=== PATIENT | female | born 1960 | race Caucasian/White ===

== ENCOUNTER 2016-12-01 01:45 | Emergency (ER) | payer MEDICARE, BC ==
[~2016-12-01] VITALS: Ht 165.1 cm; Wt 92.5 kg
[~2016-12-01 01:45] MED LIST: ATORVASTATIN CA40 MG PO; BACTRIM DS 8001 TA1 PO; DULOXETINE60 MG PO; LISINOPRIL/HCTZ1 TA3 FT; NOMEDS *; PYRIDIUM200 M2 PO
[2016-12-01] MEDS ORDERED: BENZONATATE200 MG PO (01:57)
--- NOTE | 2016-12-01 03:24 | Emergency Room Report ---
History of Present Illness Time Seen by MD Bosch Presenting Problem in Triage Pt arrived:Walked Presenting Problem:PT COMPLAINING OF COUGH. PT STATES SHE IS UNABLE TO LAY DOWN AND SLEEP. PT STATES SHE HAS BEEN TREATED FOR BRONCHITIS WITH AZITHROMYCIN AND TESSALON. SHE FINISHED COURSE OF ANTIBIOTICS ON 11/28/16. 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 N Clinical Suspician of Infection? N Mental Status: 1 - Regular (Normal Baseline) Sepsis Risk: Have you (or family members/close friends) recently traveled outside the [place]? N If Yes, where/when: Have you had exposure to infectious disease within the past month? N TB? Other? 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 No Angina: No SD: No Hypertension? Yes Hyperlipidemia? Yes CHF? No DVT? No PE? No COPD? No Asthma? No Anemia? No GERD? No Gastric ulcers? No GI Bleed? No Hernia? No Thyroid Problems? No Hypothyroidism? No CVA? No Seizures? No Diabetes? No Renal Insuffiency? No End Stage Renal Disease? No UTI? Yes Stones? No BPH? No GB Disease: No Nephritic Syndrome? No Asplenia? No Hepatitis? No Sickle Cell Disease? No Arthritis? No Migraines? No Cataracts? No Glaucoma? No MRSA? No HIV? No TB? No Anxiety? No Depression? Yes Cancer? No More? No Immunization Hx DT/Tetanus > 10 YRS Flu THIS YR Pneumonia NEVER Surgical Hx Previous Surgery?Y RT SHOULDER Tubal Ligation DX. LAP. 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 Respiratory cough, shortness of breath, denies wheezing Cardiovascular denies chest pain, denies palpitations, denies syncope Gastrointestinal denies abdominal pain, denies diarrhea, denies vomiting Genitourinary denies: dysuria, frequency, hesitancy, hematuria. Musculoskeletal denies back pain, denies joint pain, denies neck pain Skin denies rash Psychiatric/Neurological denies headache, denies seizure Physical Exam Vital Signs Vital Signs Date Time Temp Pulse Resp B/P Pulse O2 O2 Flow FiO2 Ox Delivery Rate 12/01 0442 72 18 173/94 94 12/01 0150 98.8 69 18 174/87 94 - WBC >12,000 or <4,000 or 10% bands? 2 or more SIRS Criteria Met? B/P:173/94 MAP:116 Creatinine >2.0? UA output<0.5ml/kg/hr for 2 hrs? Platelet count >100,000? Lactate >2.0mmol/1? INR >1.2 or PTT > than 60 sec? Evidence of Organ Dysfunction? Provider documented clinical suspician of infection? N Sepsis Criteria Count: 0 Sepsis Risk: General Appearance no apparent distress Eye Exam - bilateral eye PERRL, bilateral eye EOMI Ear, Nose, Throat normal ENT inspection Neck supple Respiratory Status No: respiratory distress. Lung Sounds bilateral: decreased breath sounds. 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 No Results/Orders Laboratory Tests 12/01/16336: Troponin I 0.03 12/01/16336: Sodium 141, Potassium 3.4 L, Chloride 104, Carbon Dioxide 30, BUN 8, Creatinine 1.0, Estimated Creat Clear 91, Estimated GFR (MDRD) 57 L, Glucose 104, Calcium 8.9, WBC 10.1, RBC 4.18 L, Hgb 13.2, Hct 38.4, MCV 91.8, RDW 15.6, Plt Count 204, Gran % 59.4, Gran # 6.0, Lymphocytes % 35.8, Monocytes % 4.8, Lymphocytes # 3.6, Monocytes # 0.5, PUBS MCHC 34.4, MCH 31.6 H 12/01/16 0150: Influenza Type A Ag NOT DETECTED, Influenza Type B Ag NOT DETECTED Current Medication Orders Sig/Mariangel Start time Last Medication Dose Route Stop Time Status Admin Furosemide 0 .STK-MED ONE 12/01 332 DC .ROUTE Furosemide 40 MG ONCE ONE 12/01 0330 DC 12/01 IV 12/01 033 0338 Sodium Chloride 10 ML PRN PRN 12/01 033 AC IV 12/02 0325 Orders Procedure Date/time Status IV SALINE LOCK 12/01 032 Active TROPONIN I 12/01 032 Complete CBC WITH AUTO DIFF 12/01 032 Complete BASIC METABOLIC PROFILE 12/01 0325 Complete CHEST(2 VIEWS-NOT PORTABLE) 12/01 0157 Active INFLUENZA A&B ANTIGENS 12/01 0149 Complete XRAY/CT/US XRAY/CT/US XRAY chest XR interpretation by reviewed by me Xray Results abnormal (cm) Departure Departure Time of Disposition 0553 Disposition DC Home or Self Care(routine) Clinical Impression Primary Impression: Acute dyspnea Secondary Impressions: Cough Condition STABLE Patient Instructions DI for Cough -- Adult Additional Instructions see pcp and hold lisinopril and stop smoking Discharge Counseling Counseled pt/family regarding diagnosis, test results, medications/RX, follow up needs ED Critical Care Critical Care No at 0550
--- NOTE | 2016-12-01 03:24 | Emergency Room Report ---
History of Present Illness Time Seen by MD Bosch Presenting Problem in Triage Pt arrived:Walked Presenting Problem:PT COMPLAINING OF COUGH. PT STATES SHE IS UNABLE TO LAY DOWN AND SLEEP. PT STATES SHE HAS BEEN TREATED FOR BRONCHITIS WITH AZITHROMYCIN AND TESSALON. SHE FINISHED COURSE OF ANTIBIOTICS ON 11/28/16. 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 N Clinical Suspician of Infection? N Mental Status: 1 - Regular (Normal Baseline) Sepsis Risk: Have you (or family members/close friends) recently traveled outside the [place]? N If Yes, where/when: Have you had exposure to infectious disease within the past month? N TB? Other? 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 No Angina: No MD: No Hypertension? Yes Hyperlipidemia? Yes CHF? No DVT? No PE? No COPD? No Asthma? No Anemia? No GERD? No Gastric ulcers? No GI Bleed? No Hernia? No Thyroid Problems? No Hypothyroidism? No CVA? No Seizures? No Diabetes? No Renal Insuffiency? No End Stage Renal Disease? No UTI? Yes Stones? No BPH? No GB Disease: No Nephritic Syndrome? No Asplenia? No Hepatitis? No Sickle Cell Disease? No Arthritis? No Migraines? No Cataracts? No Glaucoma? No MRSA? No HIV? No TB? No Anxiety? No Depression? Yes Cancer? No More? No Immunization Hx DT/Tetanus > 10 YRS Flu THIS YR Pneumonia NEVER Surgical Hx Previous Surgery?Y RT SHOULDER Tubal Ligation DX. LAP. 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 Respiratory cough, shortness of breath, denies wheezing Cardiovascular denies chest pain, denies palpitations, denies syncope Gastrointestinal denies abdominal pain, denies diarrhea, denies vomiting Genitourinary denies: dysuria, frequency, hesitancy, hematuria. Musculoskeletal denies back pain, denies joint pain, denies neck pain Skin denies rash Psychiatric/Neurological denies headache, denies seizure Physical Exam Vital Signs Vital Signs Date Time Temp Pulse Resp B/P Pulse O2 O2 Flow FiO2 Ox Delivery Rate 12/01 0442 72 18 173/94 94 12/01 0150 98.8 69 18 174/87 94 - WBC >12,000 or <4,000 or 10% bands? 2 or more SIRS Criteria Met? B/P:173/94 MAP:116 Creatinine >2.0? UA output<0.5ml/kg/hr for 2 hrs? Platelet count >100,000? Lactate >2.0mmol/1? INR >1.2 or PTT > than 60 sec? Evidence of Organ Dysfunction? Provider documented clinical suspician of infection? N Sepsis Criteria Count: 0 Sepsis Risk: General Appearance no apparent distress Eye Exam - bilateral eye PERRL, bilateral eye EOMI Ear, Nose, Throat normal ENT inspection Neck supple Respiratory Status No: respiratory distress. Lung Sounds bilateral: decreased breath sounds. 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 No Results/Orders Laboratory Tests 12/01/16336: Troponin I 0.03 12/01/16336: Sodium 141, Potassium 3.4 L, Chloride 104, Carbon Dioxide 30, BUN 8, Creatinine 1.0, Estimated Creat Clear 91, Estimated GFR (MDRD) 57 L, Glucose 104, Calcium 8.9, WBC 10.1, RBC 4.18 L, Hgb 13.2, Hct 38.4, MCV 91.8, RDW 15.6, Plt Count 204, Gran % 59.4, Gran # 6.0, Lymphocytes % 35.8, Monocytes % 4.8, Lymphocytes # 3.6, Monocytes # 0.5, PUBS MCHC 34.4, MCH 31.6 H 12/01/16 0150: Influenza Type A Ag NOT DETECTED, Influenza Type B Ag NOT DETECTED Current Medication Orders Sig/Mariangel Start time Last Medication Dose Route Stop Time Status Admin Furosemide 0 .STK-MED ONE 12/01 332 DC .ROUTE Furosemide 40 MG ONCE ONE 12/01 0330 DC 12/01 IV 12/01 033 0338 Sodium Chloride 10 ML PRN PRN 12/01 033 AC IV 12/02 0325 Orders Procedure Date/time Status IV SALINE LOCK 12/01 032 Active TROPONIN I 12/01 032 Complete CBC WITH AUTO DIFF 12/01 032 Complete BASIC METABOLIC PROFILE 12/01 0325 Complete CHEST(2 VIEWS-NOT PORTABLE) 12/01 0157 Active INFLUENZA A&B ANTIGENS 12/01 0149 Complete XRAY/CT/US XRAY/CT/US XRAY chest XR interpretation by reviewed by me Xray Results abnormal (cm) Departure Departure Time of Disposition 0553 Disposition DC Home or Self Care(routine) Clinical Impression Primary Impression: Acute dyspnea Secondary Impressions: Cough Condition STABLE Patient Instructions DI for Cough -- Adult Additional Instructions see pcp and hold lisinopril and stop smoking Discharge Counseling Counseled pt/family regarding diagnosis, test results, medications/RX, follow up needs ED Critical Care Critical Care No at 0546
[2016-12-01 04:27] LABS: HEMOGLOBIN 13.2 g/dL (12.2-16.2); LYMPH % 35.8 % (10-50.0)
[2016-12-01 04:28] LABS: LYMPH # 3.6 K/mm3 (0.7-4.5)
[2016-12-01 06:06] VITALS: BP 165/76
--- NOTE | 2016-12-01 07:25 | RADIOLOGY REPORT PS360 ---
CHEST(2 VIEWS-NOT PORTABLE) HISTORY: COUGH COMPARISON: 09/29/2011 FINDINGS: The cardiomediastinal silhouette and pulmonary vascularity are within normal limits. Pericardial fat pad noted on the right. Increased markings noted projecting over the heart on the lateral view with atelectasis within the right middle lobe or lingula. The remaining lungs are clear. No acute bony anomalies. IMPRESSION: Atelectatic/fibrotic changes within the right middle lobe or lingula otherwise negative
== END 2016-12-01 06:07 | disposition home or self-care (01) ==
LOC: ER 01:45
PROVIDERS: Emergency Medicine
DX: R06.09 Other forms of dyspnea (principal); R05 Cough; I10 Essential (primary) hypertension; Z72.0 Tobacco use

== ENCOUNTER → 2016-12-13 | Outpatient (CLI) | payer MEDICARE, BC ==
[~2016-12-13] MED LIST changes: +BENZONATATE200 MG PO
--- NOTE | 2016-12-16 00:27 | RADIOLOGY REPORT PS360 ---
DIG MAMM-SCREEN SELENE W/CAD CAD Screening COMPARISON: Digital mammograms 06/22/2011 and 10/23/2015 INDICATION: There is a history of breast cancer patient's mother TECHNIQUE: Standard CC and MLO images were obtained. R2 CAD reviewed. FINDINGS: Prominent heterogenic fibroglandular densities are seen in the central portions and upper outer quadrants of both breast. The findings are fairly symmetrical in each breast. There are scattered benign-appearing calcination is in each breast as noted previously. There is no suspicious lesion in either breast and there are no suspicious microcalcifications. There are small nodes in both axilla as noted previously. IMPRESSION: Moderate heterogenic breast density with no suspicious lesion seen recommend yearly follow-up BI-RADS CATEGORY: 2_Benign RECOMMENDED FOLLOWUP: 12M 12 MONTH FOLLOW-UP (A letter has been sent to the patient regarding results of the study.)
== END ==
LOC: RAD 11-26 10:30
DX: Z12.31 Encounter for screening mammogram for malignant neoplasm of breast (principal)
CPT/HCPCS: G0202

== ENCOUNTER 2017-10-08 12:27 | Emergency (ER) | payer MEDICARE, BC ==
[~2017-10-08] VITALS: Ht 165.1 cm; Wt 90.7 kg
[~2017-10-08 12:27] MED LIST changes: +MEDROL 4MG. DOSE4 MG PO
--- OUTSIDE RECORDS SUMMARY | 2017-10-08 12:31 | External Medical Summary Rpt | CCD ---
Author Author , MERVAT LEWIS Address Unknown Phone [email or web address] Purpose Continuity of Care Document - 06-03-2017 through 2016 Problems Code Diagnosis DOS Provider Status N39.0 URINARY TRACT INFECTION, SITE NOT SPECIFIED R05 COUGH R06.00 DYSPNEA, UNSPECIFIED R10.9 UNSPECIFIED ABDOMINAL PAIN R20.0 ANESTHESIA OF SKIN R29.818 OTHER SYMPTOMS AND SIGNS INVOLVING THE NERVOUS SYSTEM
--- OUTSIDE RECORDS SUMMARY | 2017-10-08 12:31 | External Medical Summary Rpt | CCD ---
Demographics Preferred Language [place] Marital Status Unknown Alevism Affiliation Unknown Race Unknown Ethnic Group Unknown Author Author , DEBBIE Organization DEBBIE Address Unknown Phone [email or web address] Immunization Name Date Rout CVX Reac Dose Comm Prov Is Faci e tion ent ider Refu lity Give sed n Td 03-0 9 999 Hist H149 No H149 (nasra 7-19 [facility] lt), 97 al Info adso rmat rbed ion - Sour ce Unsp ecif ied
--- OUTSIDE RECORDS SUMMARY | 2017-10-08 12:31 | External Medical Summary Rpt | CCD ---
Demographics Preferred Language Armenian Marital Status Unknown Quaker Affiliation Unknown Race Unknown Ethnic Group Unknown Author Author , DEBBIE Organization DEBBIE Address Unknown Phone [email or web address] Immunization Name Date Rout CVX Reac Dose Comm Prov Is Faci e tion ent ider Refu lity Give sed n Td 03-0 9 999 Hist H149 No H149 (nasra 7-19 [facility] lt), 97 al Info adso rmat rbed ion - Sour ce Unsp ecif ied
--- OUTSIDE RECORDS SUMMARY | 2017-10-08 12:31 | External Medical Summary Rpt | CCD ---
Author Author , MERVAT LEWIS Address Unknown Phone [email or web address] Purpose Continuity of Care Document - 06-03-2017 through 2016 Problems Code Diagnosis DOS Provider Status N39.0 URINARY TRACT INFECTION, SITE NOT SPECIFIED R05 COUGH R06.00 DYSPNEA, UNSPECIFIED R10.9 UNSPECIFIED ABDOMINAL PAIN R20.0 ANESTHESIA OF SKIN R29.818 OTHER SYMPTOMS AND SIGNS INVOLVING THE NERVOUS SYSTEM
--- OUTSIDE RECORDS SUMMARY | 2017-10-08 12:32 | External Medical Summary Rpt ---
Author Author DE[employer]E Production, [employer] Organization [employer] Address Unknown Phone Unavailable Results Glucose [Mass/volume] in Capillary blood by Glucometer Observa Value Referen Units Interpr Notes Date tion ce etation Range Glucose 70 - 110 mg/dl Normal No Jun 03 [Mass/vol informati 2017 ume] in on in 12:19 PM Capillary source blood by data Glucomete r
--- NOTE | 2017-10-08 12:50 | Urgent Treatment Center Report ---
History of Present Issue Date/Time Seen by Provider 10/08/17 2499 Visit Reason Pt arrived:Walked Presenting Problem:PT IS C/O L SHOULDER PAIN. PT STATES SHE HAS HAD A STIFF NECK X3 WEEKS. PT STATED SHE BENT OVER TO PICK SOMETHING UP A COUPLE DAYS AGO AND PULLED HER LEFT SHOULDER. Location if Accident: Onset of symptoms date/time:/ or onset unknown for:MEDICAL HX UNKNOWN Have you (or family members/close friends) recently traveled outside the [place]? N If Yes, where/when: Have you had exposure to infectious disease within the past month? TB? Other? Specify: Here w/ son c/o pain throughout left side of posterior neck and posterior shoulder since day before yesterday but worse today. Reporting a stiff neck ( primarily on left) when waking up approx 3 weeks ago. "[place] just like a kink in the neck from sleeping wrong". Without treatment, "worked its way out on its own over a couple days". However on , almost dropped her crockpot. Reached out and grabbed it with both hands out in front of her. Immediate pain right posterior shoulder. Since then, area more painful, stiffer and radiating into neck. Pain worse with some neck ROM and most left shoulder range of motion. Improved with heating pad and rest. Initially imiproved with NSAIDs but not "lately". Last dose last night. Denies N/T. Thinks LUE weaker but not if weak or just hurts. Denies headache, fever, vision change. PMHx of rotater cuff injury in right shoulder. Reports this doesn't feel simliar as this feels more "muscular" and "stiff". Source patient Exam Limitations no limitations ALLERGIES Coded Allergies: buspirone (From [employer]) (12/01/16) Home Medications Reported Medications Lisinopril & Hctz (Lisinopril-Hctz 10-12.5 MG Tab) 1 TAB FT DAILY #90 Atorvastatin Calcium 40 MG PO #90 History Medical History General CAD? No Angina: No OK: No Hypertension? Yes Hyperlipidemia? Yes CHF? No DVT? No PE? No COPD? No Asthma? No Anemia? No GERD? No Gastric ulcers? No GI Bleed? No Hernia? No Thyroid Problems? No Hypothyroidism? No CVA? No Seizures? No Diabetes? No Renal Insuffiency? No UTI? Yes Stones? No BPH? No GB Disease: No Nephritic Syndrome? No Asplenia? No Hepatitis? No Sickle Cell Disease? No Arthritis? No Migraines? No Cataracts? No Glaucoma? No MRSA? No HIV? No TB? No Anxiety? No Depression? Yes Cancer? No More? No Immunization HX DT/Tetanus > 10 YRS Flu THIS YR Pneumonia NEVER Surgical Hx Previous Surgery?Y RT SHOULDER Tubal Ligation DX. LAP. 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 TUNNEL Family History Family HX Diabetes Yes CAD Yes Hypertension Yes Hyperlipidemia Yes Cancer Yes TB No Social History Smoking Hx Smoker: Never Smoker Tobacco: No Packs/day < 1 Pack Alcohol Alcohol: No Review of Systems All Other Systems Reviewed and Negative (as appropriate for CC) Constitutional denies fever, denies malaise Musculoskeletal see HPI Skin denies change in color, denies lesions, denies lumps Psychiatric/Neurological see HPI Physical Exam Vital Signs Vital Signs Date Time Temp Pulse Resp B/P Pulse O2 O2 Flow FiO2 Ox Delivery Rate 10/08 1422 97.0 62 20 174/82 98 10/08 1331 20 10/08 1235 97.0 62 20 174/82 98 General Appearance moderate distress, guarding left UE and neck, head tilted to right Neck normal inspection, supple, full range of motion (w/ pain rotation to left), mild tenderness left posterior neck, no cervical spine tenderness Respiratory Status Yes: chest symmetrical, non tender chest. No: respiratory distress, use of accessory muscles, productive cough, non productive cough. Lung Sounds anterior: lungs clear. posterior: lungs clear. bilateral: lungs clear. 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 No Results/Orders Orders Procedure Date/time Status STABILIZE JOINT 10/08 1413 Active XRAY/CT/US XRAY/CT/US XRAY shoulder (left) XR interpretation by reviewed by me (ER MD not available) Xray Results no acute finding Progress [facility] Progress Notes Date 10/08/17 Time 1405 Comment Pain much improved since toradol and norflex. Using LUE more and neck/head in normal alignment now. Son is at bedside for discharge. Departure Departure Time of Disposition 1411 Disposition DC Home or Self Care(routine) Clinical Impression Primary Impression: Strain of left trapezius muscle Qualifiers: Encounter type: initial encounter Qualified Code: S46.812A - Strain of other muscles, fascia and tendons at shoulder and upper arm level, left arm, initial encounter Condition STABLE Referrals Gary CRUZ,Jorge Alberto Fajardo (Family) IMMEDIATELY for new or worsening symptoms OR no noticeable improvement over the next 3-5 days Patient Instructions DI for Muscle Spasm, DI for Muscle Strain Additional Instructions * use as tolerated but if painful, allow it to rest by using sling being sure to use ROM intermittently throughout day so shoulder doesn't get too stiff. Avoid heavy lifting/use of left arm while improving but movement important. * Rest * ice 15-20 mins 3-4 times a day for 48 hours followed by moist heat 15 minutes 3-4 times a day * sling for support. Be sure not too tight but not too loose either * naproxen every 12 hours as needed for pain and inflammation. If you need something more, you can take tylenol every 4 hours as needed as long as your primary care provider has told you it is ok to take both. * No additional anti-inflammatories like motrin, aleve, advil with the above amount of naproxen. You CAN still take Tylenol every 4 hours as needed if you need something more for pain. * Muscle relaxer every 8 hours as needed for muscle spasms but remember, it WILL cause drowsiness. You can NOT take it and drive, operate machinary or care for small children You had both toradol and norflex injections in clinic. these are similiar to the two prescriptions I sent. Be sure to wait 6-8 hours before taking your first dose. Discharge Counseling Counseled pt/family regarding diagnosis, test results, medications/RX, home care, follow up needs Prescriptions Current Visit Scripts NAPROXEN (NAPROSYN 500MG TAB) 500 MG PO BID PRN pain #14 TAB take with food Cyclobenzaprine Hcl (Flexeril) 5-10 MG PO Q8HP PRN muscle spasms #9 TAB will cause drowsiness Comments patient aware that once xray read by radiologist, I will be in touch with any different finding. 1503: Rvwd final xray result. No acute findings. at 2152
[2017-10-08] MEDS ORDERED: FLEXERIL10 MG PO (14:20)
[2017-10-08] MEDS ORDERED: NAPROSYN 500MG500 MG PO (14:20)
[2017-10-08 14:22] VITALS: BP 174/82
--- NOTE | 2017-10-08 14:35 | RADIOLOGY REPORT PS360 ---
CLINICAL INDICATION: Left shoulder pain after injury ORDERING PHYSICIAN: USAMA BYRD APRN PATIENT AGE: 57 years COMPARISON: Left shoulder 04/27/2007 FINDINGS: Three views of the left shoulder The distal clavicleleft, scapula, and proximal humerus are intact. Glenohumeral and acromioclavicular alignment appear normal. There is no acute fracture or dislocation of the left shoulder. No destructive bony lesions are identified. IMPRESSION: No acute fracture or dislocation of the left shoulder.
== END 2017-10-08 14:22 | disposition home or self-care (01) ==
LOC: UTC 12:27
DX: S46.812A Strain of other muscles, fascia and tendons at shoulder and upper arm level, left arm, initial encounter (principal); I10 Essential (primary) hypertension; E78.5 Hyperlipidemia, unspecified

== ENCOUNTER 2017-10-18 18:42 | Emergency (ER) | payer MEDICARE, BC ==
[~2017-10-18] VITALS: Ht 165.1 cm; Wt 88.9 kg
[~2017-10-18 18:42] MED LIST changes: +FLEXERIL10 MG PO; +NAPROSYN 500MG500 MG PO
--- OUTSIDE RECORDS SUMMARY | 2017-10-18 18:51 | External Medical Summary Rpt | CCD ---
Author Author , DEBBIE LEWIS Address Unknown Phone [email or web address] Purpose Continuity of Care Document - through 2016 Problems Code Diagnosis DOS Provider Status N39.0 URINARY TRACT INFECTION, SITE NOT SPECIFIED R05 COUGH R06.00 DYSPNEA, UNSPECIFIED R10.9 UNSPECIFIED ABDOMINAL PAIN R20.0 ANESTHESIA OF SKIN R29.818 OTHER SYMPTOMS AND SIGNS INVOLVING THE NERVOUS SYSTEM
--- OUTSIDE RECORDS SUMMARY | 2017-10-18 18:51 | External Medical Summary Rpt | CCD ---
Demographics Preferred Language Swedish Marital Status Unknown Mormon Affiliation Unknown Race Unknown Ethnic Group Unknown Author Author , DEBBIE Organization DEBBIE Address Unknown Phone [email or web address] Immunization Name Date Rout CVX Reac Dose Comm Prov Is Faci e tion ent ider Refu lity Give sed n Td 03-0 9 999 Hist H149 No H149 (nasra 7-19 [facility] lt), 97 al Info adso rmat rbed ion - Sour ce Unsp ecif ied
--- OUTSIDE RECORDS SUMMARY | 2017-10-18 18:51 | External Medical Summary Rpt | CCD ---
Demographics Preferred Language Afghan Marital Status Unknown Islam Affiliation Unknown Race Unknown Ethnic Group Unknown Author Author , DEBBIE Organization DEBBIE Address Unknown Phone [email or web address] Immunization Name Date Rout CVX Reac Dose Comm Prov Is Faci e tion ent ider Refu lity Give sed n Td 03-0 9 999 Hist H149 No H149 (nasra 7-19 [facility] lt), 97 al Info adso rmat rbed ion - Sour ce Unsp ecif ied
--- OUTSIDE RECORDS SUMMARY | 2017-10-18 18:51 | External Medical Summary Rpt | CCD ---
Author Author , DEBBIE LEWIS Address Unknown Phone [email or web address] Purpose Continuity of Care Document - through 2016 Problems Code Diagnosis DOS Provider Status N39.0 URINARY TRACT INFECTION, SITE NOT SPECIFIED R05 COUGH R06.00 DYSPNEA, UNSPECIFIED R10.9 UNSPECIFIED ABDOMINAL PAIN R20.0 ANESTHESIA OF SKIN R29.818 OTHER SYMPTOMS AND SIGNS INVOLVING THE NERVOUS SYSTEM
[2017-10-18] MEDS ORDERED: IBU800 MG PO (19:06)
[2017-10-18] MEDS ORDERED: OXYCODONE 5MG TA5 MG PO (19:06)
[2017-10-18] MEDS ORDERED: TIZANIDINE HCL 44 MG NG (19:06)
[2017-10-18] MEDS ORDERED: PREDNISONE 10MG10 MG PO (19:08)
--- NOTE | 2017-10-18 19:37 | Urgent Treatment Center Report ---
History of Present Issue Date/Time Seen by Provider 10/18/171918 Visit Reason Pt arrived:Walked Presenting Problem:PT COMPLAINS OF FEVER, CHILLS AND ACHINESS IN HER LT SHOULDER THAT BEGAN AT 3AM Location if Accident: Onset of symptoms date/time:/ or onset unknown for:MEDICAL HX UNKNOWN Have you (or family members/close friends) recently traveled outside the [place]? N If Yes, where/when: Have you had exposure to infectious disease within the past month? TB? Other? Specify: c/o "either the flu, pneumonia, pleuracy or a flare up of my left shoulder". Woke from a sleep at 3am with sharp left anterior chest pain. Denies movement or coughing that might have woke her. Since that time, pain worsening, now squeezing at times, radiating to left shoulder and upper arm, thinks low grade fevers, nausea. Denies aches anywhere other than left anterior chest. Was seen 10/08 for left shoulder pain and starting on NSAIDand muscle relaxer. That had been better and isn't sure if this is related or not. Feels SOA at times with minimal cough. Pain worse with deep breaths. Denies limitations left UE ROM. Hasn't taken or tried anything for symptoms. Denies hx of MA. + HTN. Doesn' t think elevated cholesterol. Source patient Exam Limitations no limitations ALLERGIES Coded Allergies: buspirone (From [facility]) (12/01/16) Home Medications Active Scripts NAPROXEN (NAPROSYN 500MG TAB) 500 MG PO BID PRN pain #14 TAB Prov: 10/08/17 Cyclobenzaprine Hcl (Flexeril) 5-10 MG PO Q8HP PRN muscle spasms #9 TAB Prov: 10/08/17 Reported Medications Lisinopril & Hctz (Lisinopril-Hctz 10-12.5 MG Tab) 1 TAB FT DAILY #90 Atorvastatin Calcium 40 MG PO #90 OXYCODONE IR (Oxycodone IR) 5 MG PO Q4HP PRN PAIN #30 Ibuprofen (MOTRIN 800MG (generic) Tablet) 800 MG PO TID #90 TIZANIDINE HCL (Tizanidine Hcl 4 Mg Tablet) 4 MG NG DAILY #30 Prednisone (Prednisone 10MG) 10 MG PO BID #32 History Medical History General CAD? No Angina: No MA: No Hypertension? Yes Hyperlipidemia? Yes CHF? No DVT? No PE? No COPD? No Asthma? No Anemia? No GERD? No Gastric ulcers? No GI Bleed? No Hernia? No Thyroid Problems? No Hypothyroidism? No CVA? No Seizures? No Diabetes? No Renal Insuffiency? No UTI? Yes Stones? No BPH? No GB Disease: No Nephritic Syndrome? No Asplenia? No Hepatitis? No Sickle Cell Disease? No Arthritis? No Migraines? No Cataracts? No Glaucoma? No MRSA? No HIV? No TB? No Anxiety? No Depression? Yes Cancer? No More? No Immunization HX DT/Tetanus > 10 YRS Flu THIS YR Pneumonia NEVER Surgical Hx Previous Surgery?Y RT SHOULDER Tubal Ligation DX. LAP. 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 TUNNEL Family History Family HX Diabetes Yes CAD Yes Hypertension Yes Hyperlipidemia Yes Cancer Yes TB No Social History Smoking Hx Smoker: Current Every Day Smoker Tobacco: Yes Type Cigarettes Packs/day < 1 Pack Alcohol Alcohol: No Review of Systems All Other Systems Reviewed and Negative Constitutional see HPI, denies chills, denies malaise, denies weakness Eyes denies drainage ENT denies: ear pain, nose discharge, nose congestion, throat pain. Respiratory see HPI, denies wheezing Cardiovascular see HPI, denies palpitations Gastrointestinal see HPI, denies abdominal pain, denies diarrhea, denies vomiting Musculoskeletal see HPI, denies back pain, denies joint swelling Skin denies change in color, denies lesions, denies lumps Psychiatric/Neurological denies headache Physical Exam Vital Signs Vital Signs Date Time Temp Pulse Resp B/P Pulse O2 O2 Flow FiO2 Ox Delivery Rate 10/18 1904 99.2 114 20 129/81 96 General Appearance normal appearance, no apparent distress Ear, Nose, Throat normal ENT inspection Neck non-tender, supple, full range of motion Respiratory Status Yes: trachea midline, chest symmetrical, non tender chest. No: respiratory distress, use of accessory muscles, pain on inspiration, pain on expiration, productive cough, non productive cough. Lung Sounds anterior: lungs clear. posterior: lungs clear. bilateral: lungs clear. Cardiovascular no peripheral edema, no murmur, tachycardia Back nontender Extremities non-tender (left shoulder (ant, lat, post)), normal range of motion (left UE w/p pain), normal inspection (left UE) Strength 5 Upper Ext (L), 5 Upper Ext (R) Neurologic alert, oriented x 3 Mental status normal mood/affect Skin normal color, warm/dry Medical Decision Making LABS/Meds/Orders Pt receiving controlled substance in ED? No Results/Orders Laboratory Tests 10/18/171902: Influenza Type A Ag NOT DETECTED, Influenza Type B Ag NOT DETECTED Orders Procedure Date/time Status [facility] FLU A,B 10/18 1903 Complete Progress [facility] Progress Notes 1 Date 10/18/17 Time 1927 Comment Discussed concerning symptoms with pt. Typically is MS, pain with ROM and/or palpation. Pt agrees. Discussed possible differentials. Agreeable to transfer to ER for CP workup. report called to Chuck. Aware of HPI and my exam. Room 1 available. [facility] Progress Notes 2 Date 10/18/17 Time 1928 Comment Pt assisted to ER by Carie Departure Departure Time of Disposition 1928 Disposition Still a Patient Clinical Impression Primary Impression: Chest pain in adult Secondary Impressions: Nausea Condition STABLE at 1936
--- NOTE | 2017-10-18 19:37 | Urgent Treatment Center Report ---
History of Present Issue Date/Time Seen by Provider 10/18/171918 Visit Reason Pt arrived:Walked Presenting Problem:PT COMPLAINS OF FEVER, CHILLS AND ACHINESS IN HER LT SHOULDER THAT BEGAN AT 3AM Location if Accident: Onset of symptoms date/time:/ or onset unknown for:MEDICAL HX UNKNOWN Have you (or family members/close friends) recently traveled outside the [place]? N If Yes, where/when: Have you had exposure to infectious disease within the past month? TB? Other? Specify: c/o "either the flu, pneumonia, pleuracy or a flare up of my left shoulder". Woke from a sleep at 3am with sharp left anterior chest pain. Denies movement or coughing that might have woke her. Since that time, pain worsening, now squeezing at times, radiating to left shoulder and upper arm, thinks low grade fevers, nausea. Denies aches anywhere other than left anterior chest. Was seen 10/08 for left shoulder pain and starting on NSAIDand muscle relaxer. That had been better and isn't sure if this is related or not. Feels SOA at times with minimal cough. Pain worse with deep breaths. Denies limitations left UE ROM. Hasn't taken or tried anything for symptoms. Denies hx of PR. + HTN. Doesn' t think elevated cholesterol. Source patient Exam Limitations no limitations ALLERGIES Coded Allergies: buspirone (From [facility]) (12/01/16) Home Medications Active Scripts NAPROXEN (NAPROSYN 500MG TAB) 500 MG PO BID PRN pain #14 TAB Prov: 10/08/17 Cyclobenzaprine Hcl (Flexeril) 5-10 MG PO Q8HP PRN muscle spasms #9 TAB Prov: 10/08/17 Reported Medications Lisinopril & Hctz (Lisinopril-Hctz 10-12.5 MG Tab) 1 TAB FT DAILY #90 Atorvastatin Calcium 40 MG PO #90 OXYCODONE IR (Oxycodone IR) 5 MG PO Q4HP PRN PAIN #30 Ibuprofen (MOTRIN 800MG (generic) Tablet) 800 MG PO TID #90 TIZANIDINE HCL (Tizanidine Hcl 4 Mg Tablet) 4 MG NG DAILY #30 Prednisone (Prednisone 10MG) 10 MG PO BID #32 History Medical History General CAD? No Angina: No PR: No Hypertension? Yes Hyperlipidemia? Yes CHF? No DVT? No PE? No COPD? No Asthma? No Anemia? No GERD? No Gastric ulcers? No GI Bleed? No Hernia? No Thyroid Problems? No Hypothyroidism? No CVA? No Seizures? No Diabetes? No Renal Insuffiency? No UTI? Yes Stones? No BPH? No GB Disease: No Nephritic Syndrome? No Asplenia? No Hepatitis? No Sickle Cell Disease? No Arthritis? No Migraines? No Cataracts? No Glaucoma? No MRSA? No HIV? No TB? No Anxiety? No Depression? Yes Cancer? No More? No Immunization HX DT/Tetanus > 10 YRS Flu THIS YR Pneumonia NEVER Surgical Hx Previous Surgery?Y RT SHOULDER Tubal Ligation DX. LAP. 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 TUNNEL Family History Family HX Diabetes Yes CAD Yes Hypertension Yes Hyperlipidemia Yes Cancer Yes TB No Social History Smoking Hx Smoker: Current Every Day Smoker Tobacco: Yes Type Cigarettes Packs/day < 1 Pack Alcohol Alcohol: No Review of Systems All Other Systems Reviewed and Negative Constitutional see HPI, denies chills, denies malaise, denies weakness Eyes denies drainage ENT denies: ear pain, nose discharge, nose congestion, throat pain. Respiratory see HPI, denies wheezing Cardiovascular see HPI, denies palpitations Gastrointestinal see HPI, denies abdominal pain, denies diarrhea, denies vomiting Musculoskeletal see HPI, denies back pain, denies joint swelling Skin denies change in color, denies lesions, denies lumps Psychiatric/Neurological denies headache Physical Exam Vital Signs Vital Signs Date Time Temp Pulse Resp B/P Pulse O2 O2 Flow FiO2 Ox Delivery Rate 10/18 1904 99.2 114 20 129/81 96 General Appearance normal appearance, no apparent distress Ear, Nose, Throat normal ENT inspection Neck non-tender, supple, full range of motion Respiratory Status Yes: trachea midline, chest symmetrical, non tender chest. No: respiratory distress, use of accessory muscles, pain on inspiration, pain on expiration, productive cough, non productive cough. Lung Sounds anterior: lungs clear. posterior: lungs clear. bilateral: lungs clear. Cardiovascular no peripheral edema, no murmur, tachycardia Back nontender Extremities non-tender (left shoulder (ant, lat, post)), normal range of motion (left UE w/p pain), normal inspection (left UE) Strength 5 Upper Ext (L), 5 Upper Ext (R) Neurologic alert, oriented x 3 Mental status normal mood/affect Skin normal color, warm/dry Medical Decision Making LABS/Meds/Orders Pt receiving controlled substance in ED? No Results/Orders Laboratory Tests 10/18/171902: Influenza Type A Ag NOT DETECTED, Influenza Type B Ag NOT DETECTED Orders Procedure Date/time Status [facility] FLU A,B 10/18 1903 Complete Progress [facility] Progress Notes 1 Date 10/18/17 Time 1927 Comment Discussed concerning symptoms with pt. Typically is MS, pain with ROM and/or palpation. Pt agrees. Discussed possible differentials. Agreeable to transfer to ER for CP workup. report called to Chuck. Aware of HPI and my exam. Room 1 available. [facility] Progress Notes 2 Date 10/18/17 Time 1928 Comment Pt assisted to ER by Carie Departure Departure Time of Disposition 1928 Disposition Still a Patient Clinical Impression Primary Impression: Chest pain in adult Secondary Impressions: Nausea Condition STABLE at 1936
--- NOTE | 2017-10-18 19:46 | Emergency Room Report ---
See Addendum History of Present Illness Time Seen by Tova Presenting Problem in Triage Pt arrived:Walked Presenting Problem:CHEST PAIN SINCE THIS AM. WAS SEEN IN [facility]. 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 Y Clinical Suspician of Infection? N Mental Status: 1 - Regular (Normal Baseline) Sepsis Risk:Possible Sepsis Risk Have you (or family members/close friends) recently traveled outside the [place]? N If Yes, where/when: Have you had exposure to infectious disease within the past month? TB? Other? Specify: Patient sent over from [facility] due to myalgias, low grade fever, dry cough since 299 today. Had pain in L shoulder that seems better now. No SOB. No n/v. No diaphoresis. No syncope. No calf pain. No cardiac history and Has HTN and hyperlipidemia, smokes; neg DM; FH CAD. Source patient, old records ALLERGIES Coded Allergies: buspirone (From [employer]) (12/01/16) Home Medications Active Scripts NAPROXEN (NAPROSYN 500MG TAB) 500 MG PO BID PRN pain #14 TAB Prov: 10/08/17 Cyclobenzaprine Hcl (Flexeril) 5-10 MG PO Q8HP PRN muscle spasms #9 TAB Prov: 10/08/17 Reported Medications Lisinopril & Hctz (Lisinopril-Hctz 10-12.5 MG Tab) 1 TAB FT DAILY #90 Atorvastatin Calcium 40 MG PO #90 OXYCODONE IR (Oxycodone IR) 5 MG PO Q4HP PRN PAIN #30 Ibuprofen (MOTRIN 800MG (generic) Tablet) 800 MG PO TID #90 TIZANIDINE HCL (Tizanidine Hcl 4 Mg Tablet) 4 MG NG DAILY #30 Prednisone (Prednisone 10MG) 10 MG PO BID #32 History Medical History General CAD? No Angina: No NH: No Hypertension? Yes Hyperlipidemia? Yes CHF? No DVT? No PE? No COPD? No Asthma? No Anemia? No GERD? No Gastric ulcers? No GI Bleed? No Hernia? No Thyroid Problems? No Hypothyroidism? No CVA? No Seizures? No Diabetes? No Renal Insuffiency? No End Stage Renal Disease? No UTI? Yes Stones? No BPH? No GB Disease: No Nephritic Syndrome? No Asplenia? No Hepatitis? No Sickle Cell Disease? No Arthritis? No Migraines? No Cataracts? No Glaucoma? No MRSA? No HIV? No TB? No Anxiety? No Depression? Yes Cancer? No More? No Immunization Hx DT/Tetanus > 10 YRS Flu THIS YR Pneumonia NEVER Surgical Hx Previous Surgery?Y RT SHOULDER Tubal Ligation DX. LAP. 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 Family History Family Hx Diabetes Yes CAD Yes Hypertension Yes Hyperlipidemia Yes Cancer Yes TB No Social History Smoking Hx Smoker: Former Smoker Tobacco: Yes Type Cigarettes Packs/day < 1 Pack Alcohol Alcohol: No Review of Systems All Other Systems Reviewed and Negative Respiratory see HPI Musculoskeletal see HPI Physical Exam Vital Signs Vital Signs Date Time Temp Pulse Resp B/P Pulse O2 O2 Flow FiO2 Ox Delivery Rate 10/18 1934 99.2 114 20 129/81 96 10/18 1904 99.2 114 20 129/81 96 General Appearance normal appearance, WD/WN, no apparent distress Eye Exam - bilateral eye normal exam, bilateral eye PERRL, bilateral eye EOMI Neck normal inspection, non-tender, supple, full range of motion Respiratory Status Yes: trachea midline, chest symmetrical, non tender chest, non productive cough. No: respiratory distress, tender on palpation, use of accessory muscles, pain on inspiration. Lung Sounds bilateral: normal breath sounds, lungs clear. Cardiovascular normal exam, regular rate/rhythm, no peripheral edema, no gallop, no JVD, no murmur, no rub, normal peripheral pulses Gastrointestinal normal bowel sounds, normal exam, non tender, soft, no organomegaly, no pulsatile mass, no guarding, no rebound Extremities non-tender, normal range of motion, normal inspection, normal capillary refill, no calf tenderness, no pedal edema Strength 5 Upper Ext (L), 5 Upper Ext (R), 5 Lower Ext (L), 5 Lower Ext (R) Neurologic alert, normal exam, no motor/sensory deficits, oriented x 3 Glascow Coma Scale Glascow Coma Scale Response Value EYE response: 4 Spontaneously 4 MOTOR response: 6 OBEYS 6 VERBAL response: 5 Oriented & Converses 5 Total 15 Skin intact, normal color, warm/dry Medical Decision Making LABS/Meds/Orders Pt receiving controlled substance in ED? No Results/Orders Laboratory Tests 10/18/171902: Influenza Type A Ag NOT DETECTED, Influenza Type B Ag NOT DETECTED Current Medication Orders Sig/Mariangel Start time Last Medication Dose Route Stop Time Status Admin Sodium Chloride 10 ML PRN PRN 10/18 1945 AC IV 10/19 1938 Orders Procedure Date/time Status ELECTROCARDIOGRAM REQUEST 10/18 1938 Active CHEST(2 VIEWS-NOT PORTABLE) 10/18 1938 Active IV SALINE LOCK 10/18 1938 Active CULTURE, BLOOD 10/18 1938 Active LACTIC ACID 10/18 1938 Active CBC WITH AUTO DIFF 10/18 1938 Active CARDIAC ENZYMES 10/18 1938 Active CHEM 12 PROFILE 10/18 1938 Active [facility] FLU A,B 10/18 1903 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 of ischemic chgs, no ectopy, normal QRS, normal [place], normal EKG (NSR 69) Departure Departure Time of Disposition 1953 Disposition Still a Patient Clinical Impression Primary Impression: Flu-like symptoms Secondary Impressions: Cough Condition STABLE Referrals Gary CRUZ,Jorge Alberto Fajardo (Family) ED Critical Care Critical Care No at 1955
--- NOTE | 2017-10-18 19:46 | Emergency Room Report ---
See Addendum History of Present Illness Time Seen by Tova Presenting Problem in Triage Pt arrived:Walked Presenting Problem:CHEST PAIN SINCE THIS AM. WAS SEEN IN [facility]. 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 Y Clinical Suspician of Infection? N Mental Status: 1 - Regular (Normal Baseline) Sepsis Risk:Possible Sepsis Risk Have you (or family members/close friends) recently traveled outside the [place]? N If Yes, where/when: Have you had exposure to infectious disease within the past month? TB? Other? Specify: Patient sent over from [facility] due to myalgias, low grade fever, dry cough since 299 today. Had pain in L shoulder that seems better now. No SOB. No n/v. No diaphoresis. No syncope. No calf pain. No cardiac history and Has HTN and hyperlipidemia, smokes; neg DM; FH CAD. Source patient, old records ALLERGIES Coded Allergies: buspirone (From [employer]) (12/01/16) Home Medications Active Scripts NAPROXEN (NAPROSYN 500MG TAB) 500 MG PO BID PRN pain #14 TAB Prov: 10/08/17 Cyclobenzaprine Hcl (Flexeril) 5-10 MG PO Q8HP PRN muscle spasms #9 TAB Prov: 10/08/17 Reported Medications Lisinopril & Hctz (Lisinopril-Hctz 10-12.5 MG Tab) 1 TAB FT DAILY #90 Atorvastatin Calcium 40 MG PO #90 OXYCODONE IR (Oxycodone IR) 5 MG PO Q4HP PRN PAIN #30 Ibuprofen (MOTRIN 800MG (generic) Tablet) 800 MG PO TID #90 TIZANIDINE HCL (Tizanidine Hcl 4 Mg Tablet) 4 MG NG DAILY #30 Prednisone (Prednisone 10MG) 10 MG PO BID #32 History Medical History General CAD? No Angina: No [place]: No Hypertension? Yes Hyperlipidemia? Yes CHF? No DVT? No PE? No COPD? No Asthma? No Anemia? No GERD? No Gastric ulcers? No GI Bleed? No Hernia? No Thyroid Problems? No Hypothyroidism? No CVA? No Seizures? No Diabetes? No Renal Insuffiency? No End Stage Renal Disease? No UTI? Yes Stones? No BPH? No GB Disease: No Nephritic Syndrome? No Asplenia? No Hepatitis? No Sickle Cell Disease? No Arthritis? No Migraines? No Cataracts? No Glaucoma? No MRSA? No HIV? No TB? No Anxiety? No Depression? Yes Cancer? No More? No Immunization Hx DT/Tetanus > 10 YRS Flu THIS YR Pneumonia NEVER Surgical Hx Previous Surgery?Y RT SHOULDER Tubal Ligation DX. LAP. 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 Family History Family Hx Diabetes Yes CAD Yes Hypertension Yes Hyperlipidemia Yes Cancer Yes TB No Social History Smoking Hx Smoker: Former Smoker Tobacco: Yes Type Cigarettes Packs/day < 1 Pack Alcohol Alcohol: No Review of Systems All Other Systems Reviewed and Negative Respiratory see HPI Musculoskeletal see HPI Physical Exam Vital Signs Vital Signs Date Time Temp Pulse Resp B/P Pulse O2 O2 Flow FiO2 Ox Delivery Rate 10/18 1934 99.2 114 20 129/81 96 10/18 1904 99.2 114 20 129/81 96 General Appearance normal appearance, WD/WN, no apparent distress Eye Exam - bilateral eye normal exam, bilateral eye PERRL, bilateral eye EOMI Neck normal inspection, non-tender, supple, full range of motion Respiratory Status Yes: trachea midline, chest symmetrical, non tender chest, non productive cough. No: respiratory distress, tender on palpation, use of accessory muscles, pain on inspiration. Lung Sounds bilateral: normal breath sounds, lungs clear. Cardiovascular normal exam, regular rate/rhythm, no peripheral edema, no gallop, no JVD, no murmur, no rub, normal peripheral pulses Gastrointestinal normal bowel sounds, normal exam, non tender, soft, no organomegaly, no pulsatile mass, no guarding, no rebound Extremities non-tender, normal range of motion, normal inspection, normal capillary refill, no calf tenderness, no pedal edema Strength 5 Upper Ext (L), 5 Upper Ext (R), 5 Lower Ext (L), 5 Lower Ext (R) Neurologic alert, normal exam, no motor/sensory deficits, oriented x 3 Glascow Coma Scale Glascow Coma Scale Response Value EYE response: 4 Spontaneously 4 MOTOR response: 6 OBEYS 6 VERBAL response: 5 Oriented & Converses 5 Total 15 Skin intact, normal color, warm/dry Medical Decision Making LABS/Meds/Orders Pt receiving controlled substance in ED? No Results/Orders Laboratory Tests 10/18/171902: Influenza Type A Ag NOT DETECTED, Influenza Type B Ag NOT DETECTED Current Medication Orders Sig/Mariangel Start time Last Medication Dose Route Stop Time Status Admin Sodium Chloride 10 ML PRN PRN 10/18 1945 AC IV 10/19 1938 Orders Procedure Date/time Status ELECTROCARDIOGRAM REQUEST 10/18 1938 Active CHEST(2 VIEWS-NOT PORTABLE) 10/18 1938 Active IV SALINE LOCK 10/18 1938 Active CULTURE, BLOOD 10/18 1938 Active LACTIC ACID 10/18 1938 Active CBC WITH AUTO DIFF 10/18 1938 Active CARDIAC ENZYMES 10/18 1938 Active CHEM 12 PROFILE 10/18 1938 Active [facility] FLU A,B 10/18 1903 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 of ischemic chgs, no ectopy, normal QRS, normal [place], normal EKG (NSR 69) Departure Departure Time of Disposition 1953 Disposition Still a Patient Clinical Impression Primary Impression: Flu-like symptoms Secondary Impressions: Cough Condition STABLE Referrals Gary CRUZ,Jorge Alberto Fajardo (Family) ED Critical Care Critical Care No at 1955
[2017-10-18 20:02] LABS: LYMPH # 3.3 K/mm3 (0.7-4.5); LYMPH % 27.5 % (10-50.0)
[2017-10-18 20:18] LABS: HEMOGLOBIN 14.9 g/dL (12.2-16.2)
[2017-10-18 20:30] LABS: BUN 15 mg/dL (7-18); GFR (ESTIMATED) 51 ML/MIN (59-)
[2017-10-18 20:59] VITALS: BP 122/74
--- NOTE | 2017-10-18 22:02 | RADIOLOGY REPORT PS360 ---
CHEST(2 VIEWS-NOT PORTABLE) HISTORY: CHEST PAIN SINCE THIS AM ORDERING PHYSICIAN: Marycruz Bullock MD PATIENT AGE: 57 years COMPARISON: 12/01/2016 FINDINGS: The cardiomediastinal silhouette and pulmonary vascularity are within normal limits. There is a prominent right pericardial fat pad unchanged. Atelectatic changes are present in the right lower lobe. Remaining lungs are clear. No acute bony anomalies. IMPRESSION: Right lower lobe atelectasis otherwise negative
== END 2017-10-18 20:59 | disposition still patient (30) ==
LOC: UTC 18:42 → ER 18:48
PROVIDERS: Nurse Practitioner Family
DX: R07.89 Other chest pain (principal); I10 Essential (primary) hypertension; F17.210 Nicotine dependence, cigarettes, uncomplicated; M25.512 Pain in left shoulder; E78.5 Hyperlipidemia, unspecified

== ENCOUNTER → 2017-10-24 | Outpatient (CLI) | payer MEDICARE, BC ==
[~2017-10-24] MED LIST changes: +IBU800 MG PO; +OXYCODONE 5MG TA5 MG PO; +PREDNISONE 10MG10 MG PO; +TIZANIDINE HCL 44 MG NG
--- NOTE | 2017-10-25 10:22 | RADIOLOGY REPORT PS360 ---
MRI-UP EXT ANY JNT W/O-LT HISTORY: Left shoulder pain with limited range of motion LEFT NECK PAIN WITH RADICULAR PAIN, LEFT SHOULDER/ARM ORDERING PHYSICIAN: Jorge Alberto Vega MD PATIENT AGE: 57 years COMPARISON: Radiograph of 10/08/2017 TECHNIQUE: Standard multiplanar multiecho sequences are performed without contrast. FINDINGS: There is mild downsloping of the acromion. Slight increased T2 signal involves the supraspinatus tendon consistent with tendinopathy/tendinosis. No evidence of tear of the rotator cuff. The infraspinatus tendon, subscapularis, and teres minor tendons are intact. No obvious labral tear. Bicipital tendon is in place. No significant joint effusion or bone bruise or fracture. IMPRESSION: 1. Mild tendinopathy/tendinosis of the supraspinatus tendon with mild subacromial stenosis. 2. Otherwise negative MRI of the left shoulder
--- NOTE | 2017-10-25 10:28 | RADIOLOGY REPORT PS360 ---
MRI-C-SPINE W/O, MRI-3D RENDERING/MYELOGRAM HISTORY: LEFT NECK PAIN WITH RADICULAR PAIN, LEFT SHOULDER/ARM ORDERING PHYSICIAN: Jorge Alberto Vega MD PATIENT AGE: 57 years COMPARISON: None TECHNIQUE: Standard multiplanar multiecho sequences are performed without contrast. 3-D MIP and myelographic images are also rendered and reviewed FINDINGS: There is normal alignment. There is mild cerebellar tonsillar ectopia of 3 to 4 mm. There is some increased T2 signal involving the meche which is nonspecific and may be better evaluated with MRI of the brain if clinically warranted. C2-C3, C3-C4, and C4-C5 have an unremarkable appearance C5-C6: Degenerative disc disease with bulging discs eccentric towards the left with left-sided foraminal and lateral recess narrowing. There is canal stenosis at this level with canal measuring 9 mm. Very minimal contour deformity involves the anterior aspect and left aspect of the cord. C6-C7: Degenerative disc disease with bulging disc eccentric towards the left with canal stenosis at 7 mm with impingement upon the anterior and left aspect of the cord with left lateral recess and foraminal narrowing. C7-T1: Unremarkable. IMPRESSION: 1. Cerebellar tonsillar ectopia. 2. Nonspecific increased T2 signal the meche. 3. Degenerative disc disease C5-C6 with bulging discs eccentric towards the left with left-sided foraminal and lateral recess narrowing and canal stenosis measuring 9 mm. Very minimal contour deformity involves the anterior aspect and left aspect of the cord. 4. Degenerative disc disease C6-C7 with bulging disc eccentric towards the left with canal stenosis at 7 mm with impingement upon the anterior and left aspect of the cord with left lateral recess and foraminal narrowing.
== END ==
LOC: RAD 14:30
DX: M54.12 Radiculopathy, cervical region (principal); M25.512 Pain in left shoulder